=== PATIENT | female | born 1965 | race Hispanic/Latino ===

== ENCOUNTER 2018-06-12 00:25 | Emergency (ER) | payer BC ==
[2018-06-12] MEDS ORDERED: NACL 0.9% 1000 ML 1,000 ML IV ONE (00:34)
--- NOTE | 2018-06-12 00:38 | Emergency Department Report ---
ED Neuro Deficit HPI - General Stated Complaint: WEAKNESS Time Seen by Provider: 06/12/18 00:32 Source: patient, EMS - History of Present Illness Initial Comments: Patient is 53 years old female with history of TIA and bipolar disorder. 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 Patient stated that her symptoms started about 5: 00 this afternoon. Patient is lethargic with a blood pressure initially 70/50. Patient pupils are pinpoint and reactive to light. -: Sudden, This evening Location: speech Presenting Symptoms: Present: Blurred/Loss of Vision, Unable to Speak Clearly History of same: Yes Place: work Severity: moderate - Related Data Allergies/Adverse Reactions: Allergies Allergy/AdvReac Type Severity Reaction Status Date / Time azithromycin Allergy Itching Verified 06/12/18 00:36 ED Review of Systems ROS: Stated complaint: WEAKNESS Other details as noted in HPI Comment: All other systems reviewed and negative Constitutional: denies: chills, fever ENT: denies: ear pain, throat pain Cardiovascular: denies: chest pain, palpitations, dyspnea on exertion Gastrointestinal: denies: abdominal pain, nausea, vomiting, diarrhea, constipation, hematemesis, melena, hematochezia Genitourinary: denies: urgency, dysuria, frequency, hematuria, discharge, abnormal menses Musculoskeletal: denies: back pain Neurological: weakness. denies: headache, numbness, paresthesias Psychiatric: denies: suicidal thoughts ED Neuro Physical Exam - General Limitations: Altered Mental Status General appearance: obtunded Suspected Stroke: Yes - Head Head exam: Present: atraumatic, normocephalic, normal inspection - Eye Eye exam: Present: normal appearance Pupils: Present: other (pinpoint pupils) - ENT ENT exam: Present: normal exam, normal orophraynx, mucous membranes moist - Neck Neck exam: Present: normal inspection, full ROM. Absent: tenderness, meningismus, lymphadenopathy, thyromegaly - Respiratory Respiratory exam: Present: normal lung sounds bilaterally. Absent: respiratory distress, wheezes, rales, rhonchi, accessory muscle use, decreased breath sounds , prolonged expiratory - Cardiovascular Cardiovascular Exam: Present: regular rate, normal rhythm, normal heart sounds - GI/Abdominal GI/Abdominal exam: Present: soft, normal bowel sounds. Absent: distended, tenderness, guarding, rebound, rigid, organomegaly, mass, bruit, pulsatile mass , hernia - Extremities Exam Extremities exam: Present: normal inspection, full ROM, normal capillary refill. Absent: tenderness, pedal edema, joint swelling, calf tenderness - Back Exam Back exam: Present: normal inspection, full ROM. Absent: tenderness, CVA tenderness (R), CVA tenderness (L), muscle spasm, paraspinal tenderness, vertebral tenderness, rash noted - Neurological Exam Neurological exam: Present: alert, oriented X3, CN II-XII intact, reflexes normal - NIHSS Assessment Interval: Baseline 1a. Level of Consciousness: arousable/minor stimuli 1b. LOC Questions: answers both correctly 1c. LOC Commands: performs tasks correctly 2. Best Gaze: normal 3. Visual: partial hemianopia 4. Facial Palsy: normal symmetrical movement 5b. Motor Arm Right: no drift 5a. Motor Arm Left: no drift 6a. Motor Leg Left: no drift 6b. Motor Leg Right: no drift 7. Limb Ataxia: absent 8. Sensory: normal 9. Best Language: mild/moderate aphasia 10. Dysarthria: mild/moderate dysarthria 11. Extinction/Inattention: no abnormality Total Score: 4 Stroke Severity: Minor Stroke - Psychiatric Psychiatric exam: Absent: homicidal ideation, suicidal ideation - Skin Skin exam: Present: warm, intact ED Course Vital Signs 06/12/18 06/12/18 06/12/18 00:45 00:52 01:00 Temperature 99 F Pulse Rate 75 74 73 Respiratory 15 16 14 Rate Blood Pressure 89/44 81/51 Blood Pressure 80/50 [Left] O2 Sat by Pulse 94 96 Oximetry 06/12/18 06/12/18 06/12/18 01:30 01:45 02:00 Temperature Pulse Rate 71 69 68 Respiratory 12 10 L 14 Rate Blood Pressure 86/53 87/51 87/59 Blood Pressure [Left] O2 Sat by Pulse 96 99 Oximetry 06/12/18 06/12/18 06/12/18 02:15 02:30 02:45 Temperature Pulse Rate 67 67 65 Respiratory 12 13 13 Rate Blood Pressure 93/57 97/63 99/52 Blood Pressure [Left] O2 Sat by Pulse 94 95 95 Oximetry 06/12/18 06/12/18 06/12/18 03:00 03:15 03:30 Temperature Pulse Rate 65 64 63 Respiratory 12 13 13 Rate Blood Pressure 98/59 90/58 102/60 Blood Pressure [Left] O2 Sat by Pulse 96 96 97 Oximetry 06/12/18 06/12/18 06/12/18 03:45 04:00 04:15 Temperature Pulse Rate 69 64 76 Respiratory 13 14 11 L Rate Blood Pressure 120/84 115/64 127/76 Blood Pressure [Left] O2 Sat by Pulse 98 100 Oximetry 06/12/18 06/12/18 06/12/18 04:30 04:45 05:01 Temperature Pulse Rate 67 69 71 Respiratory 13 13 13 Rate Blood Pressure 130/78 130/83 107/67 Blood Pressure [Left] O2 Sat by Pulse 99 99 98 Oximetry 06/12/18 06/12/18 06/12/18 05:15 05:30 05:45 Temperature Pulse Rate 68 69 67 Respiratory 12 15 14 Rate Blood Pressure 113/74 124/82 114/78 Blood Pressure [Left] O2 Sat by Pulse 74 L 94 94 Oximetry 06/12/18 06/12/18 06/12/18 06:00 06:15 06:30 Temperature Pulse Rate 65 67 Respiratory 10 L 12 16 Rate Blood Pressure 104/75 110/64 Blood Pressure [Left] O2 Sat by Pulse 97 100 96 Oximetry - Reevaluation(s) Reevaluation #1: 06/12/18 05:59 Patient is alert oriented 3 in no acute distress. She stated that she is calling her family to come and pick. - Lab Data Result diagrams: 06/12/18 00:49 06/12/18 00:49 Lab Results 06/12/18 06/12/18 06/12/18 Range/Units 00:49 00:49 00:49 WBC 7.1 (4.5-11.0) K/mm3 RBC 3.50 L (3.65-5.03) M/mm3 Hgb 10.8 (10.1-14.3) gm/dl Hct 31.6 (30.3-42.9) % MCV 90 (79-97) fl MCH 31 (28-32) pg MCHC 34 (30-34) % RDW 13.6 (13.2-15.2) % Plt Count 186 (140-440) K/mm3 Lymph % (Auto) 20.3 (13.4-35.0) % [place] % (Auto) 11.2 H (0.0-7.3) % Eos % (Auto) 5.4 H (0.0-4.3) % Baso % (Auto) 0.8 (0.0-1.8) % Lymph # 1.4 (1.2-5.4) K/mm3 [place] # 0.8 (0.0-0.8) K/mm3 Eos # 0.4 (0.0-0.4) K/mm3 Baso # 0.1 (0.0-0.1) K/mm3 Seg Neutrophils % 62.3 (40.0-70.0) % Seg Neutrophils # 4.4 (1.8-7.7) K/mm3 PT 12.9 (12.2-14.9) Sec. INR 0.93 (0.87-1.13) APTT 23.7 L (24.2-36.6) Sec. Thrombin Time 15.7 (15.1-19.6) Sec. Sodium 136 L (137-145) mmol/L Potassium 4.0 (3.6-5.0) mmol/L Chloride 102.4 (98-107) mmol/L Carbon Dioxide 23 (22-30) mmol/L Anion Gap 15 mmol/L BUN 14 (7-17) mg/dL Creatinine 0.5 L (0.7-1.2) mg/dL Estimated GFR > 60 ml/min BUN/Creatinine Ratio 28 % Glucose 144 H (65-100) mg/dL Calcium 8.2 L (8.4-10.2) mg/dL Total Bilirubin (0.1-1.2) mg/dL Direct Bilirubin (0-0.2) mg/dL Indirect Bilirubin mg/dL AST (5-40) units/L ALT (7-56) units/L Alkaline Phosphatase (35-129) units/L Total Creatine Kinase 50 (30-135) units/L CK-MB (CK-2) < 1.0 (0.0-4.0) ng/mL CK-MB (CK-2) Rel Index 2.0 (0-4) Troponin T < 0.010 (0.00-0.029) ng/mL Total Protein (6.3-8.2) g/dL Albumin (3.9-5) g/dL Albumin/Globulin Ratio % Urine Color (Yellow) Urine Turbidity (Clear) Urine pH (5.0-7.0) Ur Specific [place] (1.003-1.030) Urine Protein (Negative) mg/dL Urine Glucose (UA) (Negative) mg/dL Urine Ketones (Negative) mg/dL Urine Blood (Negative) Urine Nitrite (Negative) Urine Bilirubin (Negative) Urine Urobilinogen (<2.0) mg/dL Ur Leukocyte Esterase (Negative) Urine WBC (Auto) (0.0-6.0) /HPF Urine RBC (Auto) (0.0-6.0) /HPF Urine Opiates Screen Urine Methadone Screen Ur Barbiturates Screen Ur Phencyclidine Scrn Ur Amphetamines Screen U Benzodiazepines Scrn Urine Cocaine Screen U Marijuana (THC) Screen Drugs of Abuse Note 06/12/18 06/12/18 06/12/18 Range/Units 00:49 01:54 01:54 WBC (4.5-11.0) K/mm3 RBC (3.65-5.03) M/mm3 Hgb (10.1-14.3) gm/dl Hct (30.3-42.9) % MCV (79-97) fl MCH (28-32) pg MCHC (30-34) % RDW (13.2-15.2) % Plt Count (140-440) K/mm3 Lymph % (Auto) (13.4-35.0) % [place] % (Auto) (0.0-7.3) % Eos % (Auto) (0.0-4.3) % Baso % (Auto) (0.0-1.8) % Lymph # (1.2-5.4) K/mm3 [place] # (0.0-0.8) K/mm3 Eos # (0.0-0.4) K/mm3 Baso # (0.0-0.1) K/mm3 Seg Neutrophils % (40.0-70.0) % Seg Neutrophils # (1.8-7.7) K/mm3 PT (12.2-14.9) Sec. INR (0.87-1.13) APTT (24.2-36.6) Sec. Thrombin Time (15.1-19.6) Sec. Sodium (137-145) mmol/L Potassium (3.6-5.0) mmol/L Chloride (98-107) mmol/L Carbon Dioxide (22-30) mmol/L Anion Gap mmol/L BUN (7-17) mg/dL Creatinine (0.7-1.2) mg/dL Estimated GFR ml/min BUN/Creatinine Ratio % Glucose (65-100) mg/dL Calcium (8.4-10.2) mg/dL Total Bilirubin 0.30 (0.1-1.2) mg/dL Direct Bilirubin < 0.2 (0-0.2) mg/dL Indirect Bilirubin 0.1 mg/dL AST 25 (5-40) units/L ALT 27 (7-56) units/L Alkaline Phosphatase 67 (35-129) units/L Total Creatine Kinase (30-135) units/L CK-MB (CK-2) (0.0-4.0) ng/mL CK-MB (CK-2) Rel Index (0-4) Troponin T (0.00-0.029) ng/mL Total Protein 5.3 L (6.3-8.2) g/dL Albumin 3.2 L (3.9-5) g/dL Albumin/Globulin Ratio 1.5 % Urine Color Yellow (Yellow) Urine Turbidity Clear (Clear) Urine pH 6.0 (5.0-7.0) Ur Specific [place] 1.010 (1.003-1.030) Urine Protein <15 mg/dl (Negative) mg/dL Urine Glucose (UA) 50 (Negative) mg/dL Urine Ketones Neg (Negative) mg/dL Urine Blood Neg (Negative) Urine Nitrite Neg (Negative) Urine Bilirubin Neg (Negative) Urine Urobilinogen < 2.0 (<2.0) mg/dL Ur Leukocyte Esterase Neg (Negative) Urine WBC (Auto) < 1.0 (0.0-6.0) /HPF Urine RBC (Auto) 1.0 (0.0-6.0) /HPF Urine Opiates Screen Presumptive positive Urine Methadone Screen Presumptive negative Ur Barbiturates Screen Presumptive negative Ur Phencyclidine Scrn Presumptive negative Ur Amphetamines Screen Presumptive negative U Benzodiazepines Scrn Presumptive negative Urine Cocaine Screen Presumptive negative U Marijuana (THC) Screen Presumptive negative Drugs of Abuse Note Disclamer - EKG Data -: EKG Interpreted by Nh EKG shows normal: sinus rhythm Rate: normal Interpretation: no acute changes - Radiology Data Radiology results: report reviewed Referring Physician: BRE TINAJERO Patient Name: GIOVANNA WILSON Date of : 1965 Sex: Female Report Date: 2018-06-12 Report Status: Finalized Findings [facility] [address] [place] [address] Cat Scan Report Signed Patient: GIOVANNA WILSON MR#: [id number] : 1965 Acct:[id number] Age/Sex: 53 / F ADM Date: 06/12/18 Loc: ED Attending Dr: Ordering Physician: BRE TINAJERO Date of Service: 06/12/18 Procedure(s): CT head/brain wo con Accession Number(s): [id number] cc: BRE TINAJERO FINAL REPORT PROCEDURE: CT HEAD/BRAIN WO CON TECHNIQUE: Computerized tomography of the head was performed without contrast material. HISTORY: AMS COMPARISON: No prior studies are available for comparison. FINDINGS: Skull and scalp: Normal. Paranasal sinuses: There is partial opacification of the ethmoid and right maxillary sinuses. Ventricles and subarachnoid spaces: Normal. Cerebrum: No evidence of hemorrhage, acute infarction or mass . Cerebellum and brainstem: No evidence of hemorrhage, acute infarction or mass. Vasculature: Normal. Comments: None. IMPRESSION: There is no evidence of an acute intracranial process. Transcribed By: [facility] Dictated By: TINA CALI MD Electronically Authenticated By: TINA CALI MD Signed Date/Time: 06/12/18137 DD/ 7 TD/TT: 06/12/18137 - Medical Decision Making Patient is 53 years old female with history of TIA and bipolar disorder. 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 Patient stated that her symptoms started about 5: 00 this afternoon. Patient is lethargic with a blood pressure initially 70/50. Patient pupils are pinpoint and reactive to light. Patient's CT brain is negative. Patient is moving all extremities. Urine drug screen is positive for opiates. Patient given Narcan and she woke up. Patient currently on Narcan drip. No evidence of stroke. I believe this is a narcotics abuse and patient would be able to go home as soon as she is sober. Critical Care Time: Yes Critical care time in (mins) excluding proc time.: 30 Critical care attestation.: If time is entered above; I have spent that time in minutes in the direct care of this critically ill patient, excluding procedure time. ED Disposition Clinical Impression: Opiate or related narcotic overdose Disposition: DC-01 TO HOME OR SELFCARE Is pt being admited?: No Condition: Stable Instructions: Narcotic Abuse (ED), Altered Mental Status (ED) Referrals: PRIMARY CARE, [Primary Care Provider] - 3-5 Days Forms: Work/School Release Form(ED)
[2018-06-12 01:00] LABS: Basophils # (Auto) 0.1 K/mm3 (0.0-0.1); Basophils % (Auto) 0.8 % (0.0-1.8); Eosinophils # (Auto) 0.4 K/mm3 (0.0-0.4); Eosinophils % (Auto) 5.4 % (0.0-4.3); Hematocrit 31.6 % (30.3-42.9); Hemoglobin 10.8 gm/dl (10.1-14.3); Lymphocytes # (Auto) 1.4 K/mm3 (1.2-5.4); Lymphocytes % (Auto) 20.3 % (13.4-35.0); Mean Corpuscular HGB Conc 34 % (30-34); Mean Corpuscular Hemoglobin 31 pg (28-32); Mean Corpuscular Volume 90 fl (79-97); Monocytes # (Auto) 0.8 K/mm3 (0.0-0.8); Monocytes % (Auto) 11.2 % (0.0-7.3); Platelet Count 186 K/mm3 (140-440); Red Cell Distribution Width 13.6 % (13.2-15.2)
[2018-06-12 01:22] LABS: BUN/Creatinine Ratio 28; Blood Urea Nitrogen 14 mg/dL (7-17); Calcium 8.2 mg/dL (8.4-10.2); Hemolysis Index 11
[2018-06-12 01:23] LABS: Alanine Aminotransferase 27 units/L (7-56); Albumin 3.2 g/dL (3.9-5)
[2018-06-12 01:25] LABS: Bilirubin,Direct < 0.2 mg/dL (0-0.2); Creatine Kinase MB < 1.0 ng/mL (0.0-4.0)
--- NOTE | 2018-06-12 01:40 | Cat Scan Report ---
FINAL REPORT PROCEDURE: CT HEAD/BRAIN WO CON TECHNIQUE: Computerized tomography of the head was performed without contrast material. HISTORY: AMS COMPARISON: No prior studies are available for comparison. FINDINGS: Skull and scalp: Normal. Paranasal sinuses: There is partial opacification of the ethmoid and right maxillary sinuses. Ventricles and subarachnoid spaces: Normal. Cerebrum: No evidence of hemorrhage, acute infarction or mass . Cerebellum and brainstem: No evidence of hemorrhage, acute infarction or mass. Vasculature: Normal. Comments: None. IMPRESSION: There is no evidence of an acute intracranial process.
[2018-06-12 02:04] LABS: INR 0.93 (0.87-1.13)
[2018-06-12 02:05] LABS: Partial Thromboplastin Time 23.7 Sec. (24.2-36.6); Thrombin Time 15.7 Sec. (15.1-19.6)
[2018-06-12 02:31] LABS: Bilirubin,Urine NEG (Negative); Blood,Urine NEG (Negative); Color,Urine Yellow (Yellow); Protein,Urine <15 mg/dL mg/dL (Negative); Urobilinogen,Urine < 2.0 mg/dL (<2.0); WBC,Urine < 1.0 /HPF (0.0-6.0)
[2018-06-12 02:38] LABS: Amphetamine Screen,Urine PRESUMPTIVE NEGATIVE; Benzodiazepines Screen,Urine PRESUMPTIVE NEGATIVE; Cannabinoid Screen,Urine PRESUMPTIVE NEGATIVE; Cocaine Screen,Urine PRESUMPTIVE NEGATIVE; Methadone Screen,Urine PRESUMPTIVE NEGATIVE
[2018-06-12 03:08] LABS: Opiate Screen,Urine PRESUMPTIVE POSITIVE
[2018-06-12] MEDS ORDERED: NARCAN 2 MG/2 ML ONE (03:29)
[2018-06-12] MEDS ORDERED: NARCAN 2 MG/2 ML IV ONE ×2 (03:30)
[2018-06-12] MEDS ORDERED: NARCAN 2 MG/2 ML 2 MG in NACL 0.9% 500 ML 500 ML IV ONE (03:49)
[2018-06-12 06:22] VITALS: BP 110/64
== END 2018-06-12 11:13 | disposition home or self-care (01) ==
LOC: ED 00:25
DX: T40.601A Poisoning by unspecified narcotics, accidental (unintentional), initial encounter (principal); F31.9 Bipolar disorder, unspecified; Z88.1 Allergy status to other antibiotic agents; Y92.89 Other specified places as the place of occurrence of the external cause
CPT/HCPCS: 36415; 70450; 80048; 80074; 80307; 81001; 82550; 82553; 84484; 85025; 85610; 85670; 85730; 93005; 93010; 96361; 96365; 96366; 96376; 99291; J2310; J7040; 99285